=== PATIENT | male | born 1940 | race Caucasian/White ===

== ENCOUNTER 2018-07-08 17:32 | Inpatient (IN) | payer OTHER ==
--- OUTSIDE RECORDS SUMMARY | 2018-07-08 17:35 | XMS REPORT ---
:1940 [facility] Address [address] [place] [address] Care Team Providers Name Role Phone DOROTHY HOWARD Unavailable Unavailable Problems This patient has no known problems. Allergies, Adverse Reactions, Alerts This patient has no known allergies or adverse reactions. Medications This patient has no known medications. Results Test Description Test Time Test Comments Text Results Atomic Results Result Comments CT, FIDUCIAL 2017-07-28 Reason for Exam:->CT guided Addendum BeginsREPORT MARKER PLACEMENT 19:12:00 prostate fiducial placement; STATUS:A PATIENT ID: PERCUTANEOUS FOR 3-4 fiducials in prostate for [id number] Addendum: RADIATION THERAPY IMRT (non-Cyberknife) daily This exam was radiotherapyLocation->[facility] performed [facility] to our departmental dose-optimization program, which includes automated exposure control, adjustment of the mA and/or kV according to patient size and/or use of interactive reconstruction technique. Signed: Yamila Bruno MDReport Verified Date/Time: 07/28/2017 19:12:23 Reading Location: [facility] C013Y CT Body Reading RoomAddendum EndsFINAL REPORT CT-guided gold fiducial marker placement date 07/14/2017 Pre- and post procedure diagnosis: Prostate cancer Physician: Yamila Bruno Assistants: None Conscious Sedation: 1 Versed, 50 Fentanyl IVPatient vital signs were monitored continuously and remained stable. Sedation time: 25 minutes Discussion: The risks, benefits, and alternatives of the procedure were explained to the patient. Questions were answered. Informed, written consent was obtained. A CT of the pelvis was performed with the patient prone. The skin of the lower back was prepped, draped, and local anesthesia given. 3 18-gauge Cybermark gold fiducial markers were placed at the junction of the prostate base and seminal vesicles bilaterally and and left apex. The markers are at least 2 cm apart. Estimated blood loss: None Specimen: None Complications: No immediate Disposition: Home, in good condition, following 2 hours observation. The patient will return later for CT simulation. Grafts/implants: N/A Impression: CT guided placement of gold fiducial markers in the prostate gland. Signed: Yamila Bruno MDReport Verified Date/Time: 07/14/2017 18:04:10 Reading Location: [facility] C013Y CT Body Reading Room /APTT 2017-07-14 10:54:00 Test Item Value Reference Range Comments PROTIME (BEAKER) (test mnmk=029) 13.1 seconds 11.7-14.7 INR (BEAKER) (test nxjd=831) 1.0 <=5.9 PARTIAL THROMBOPLASTIN TIME (BEAKER) (test vghn=346) 27.8 seconds 22.5-36.0 RECOMMENDED COUMADIN/WARFARIN INR THERAPY RANGESSTANDARD DOSE: 2.0 - 3.0 Includes: PROPHYLAXIS forvenous thrombosis, systemic embolization; TREATMENT for venous thrombosis and/or pulmonary embolus.HIGH RISK: Target INR is 2.5-3.5 for patients with mechanical heart valves.PLATELET [id number] 10:39:00 Test Item Value Reference Range Comments PLATELET COUNT (BEAKER) (test zmkc=242) 159 K/CU MM 150-450
--- OUTSIDE RECORDS SUMMARY | 2018-07-08 17:35 | XMS REPORT | Clinical Summary ---
:1940 Author Organization [facility] Address [address] [place] [address] Care Team Providers Name Role Phone Geri Waylon Primary Care Provider Allergies No Known Allergies Medications Medication Sig Dispensed Refills Start End Date Status Date Missing or Non-Formulary Take 1 tablet 0 Active Medication by mouth daily TUMERIC . bernadette, Zingiber Take 1 0 Active officinalis, 250 mg Cap capsule by mouth daily BERNADETTE . magnesium 30 mg tablet Take 30 mg by 0 Active mouth daily. HAWTHORN ORAL Take 1 0 Active capsule by mouth daily. losartan 50 MG Tab 100 Take by mouth 0 Active mg, hydroCHLOROthiazide daily. 12.5 mg Cap 12.5 mg Missing or Non-Formulary ESSENTIAL 0 Active Medication ENZYMES- JUST BEFORE EATING BEEF . LOSARTAN POTASSIUM Take by 0 07/14/19 Discontinued (LOSARTAN ORAL) mouth. 18 losartan-hydrochlorothia Take 1 tablet 0 07/14/19 Discontinued zide (HYZAAR) 100-12.5 by mouth 18 mg per tablet daily. aller xt-tree Take 1 tablet 0 07/14/19 Discontinued pollen,hackberry 1 :20 by mouth 18 Soln daily. Active Problems Not on file Encounters Date Type Specialty Care Team Description 02/18/2018 Procedure visit Radiation Oncology Marvin Ramos MD 11/19/2017 Procedure visit Radiation Oncology Marvin Ramos MD 09/29/2017 Procedure visit Radiation Oncology Marvin Ramos MD 08/31/2017 Procedure visit Radiation Oncology Marvin Ramos MD 08/03/2017 Procedure visit Radiation Oncology Marvin Ramos MD 08/03/[address] 07/14/2017 Hospital Encounter Radiology Marvin Ramos MD Malignant neoplasm of prostate (HCC) 07/09/2017 Orders Only Radiation Oncology Marvin Ramos MD Malignant neoplasm of prostate (HCC) (Primary Dx) after 07/07/2017 Social History Tobacco Use Types Packs/Day Years Used Date Never Smoker Smokeless Tobacco: Never Used Alcohol Use Drinks/Week oz/Week Comments Yes 8 Glasses of wine 9.6 8 Cans of beer Sex Assigned at Date Recorded Not on file Job Start Date Occupation Industry Not on file Not on file Not on file Travel History Travel Start Travel End No recent travel history available. Last Filed Vital Signs Vital Sign Reading Time Taken Blood Pressure 165/70 07/14/2017 3:[address] REGISTRAR Pulse 72 07/14/2017 3:[address] REGISTRAR Temperature 37 C (98.6 F) 07/14/2017 12:[address] REGISTRAR Respiratory Rate 18 07/14/2017 3:[address] REGISTRAR Oxygen Saturation 94% 07/14/2017 2:[address] REGISTRAR Inhaled Oxygen Concentration - - Weight 75.3 kg (166 lb) 07/14/2017 10:[address] REGISTRAR Height 172.7 cm (5' 8") 07/14/2017 10:[address] REGISTRAR Body Mass Index 25.24 07/14/2017 10:[address] REGISTRAR Plan of Treatment Health Maintenance Due Date Last Done Comments INFLUENZA VACCINE 03/01/2018 Procedures Procedure Name Priority Date/Time Associated Diagnosis Comments CT GUIDED FIDUCIAL STAT 07/14/2017 1:38 PM Malignant neoplasm Results for this MARKER PLACEMENT [facility] REGISTRAR of prostate (HCC) procedure are in the results section. PLATELET COUNT STAT 07/14/2017 10:32 AM Results for this [facility] REGISTRAR procedure are in the results section. PT/APTT STAT 07/14/2017 10:32 AM Results for this [facility] REGISTRAR procedure are in the results section. after 07/07/[address] guided fiducial marker placement (07/14/2017 1:[address] REGISTRAR) Narrative Performed At Addendum Begins 3Touch [facility] REPORT STATUS:A Addendum: This exam was performed according to our departmental dose-optimization program, which includes automated exposure control, adjustment of the mA and/or kV according to patient size and/or use of interactive reconstruction technique. Signed: Yamila Bruno MD Report Verified Date/Time:07/28/2017 19:12:23 Reading Location: [facility] B1 C013Y CT Body Reading Room Addendum Ends FINAL REPORT CT-guided gold fiducial marker placement date 07/14/2017 Pre- and post procedure diagnosis: Prostate cancer Physician: Yamila Bruno Assistants: None Conscious Sedation: 1 Versed, 50 Fentanyl IV Patient vital signs were monitored continuously and remained [...] and seminal vesicles bilaterally and and left apex.The markers are at least 2 cm apart. Estimated blood loss: None Specimen: None Complications: No immediate Disposition: Home, in good condition, following 2 hours observation. The patient will return later for CT simulation. Grafts/implants: N/A Impression: CT guided placement of gold fiducial markers in the prostate gland. Signed: Yamila Bruno MD Report Verified Date/Time:07/14/2017 18:04:10 Reading Location: [facility] C0Y CT Body Reading Room Procedure Note Interface, External Ris In - 07/28/2017 7:[address] REGISTRAR Addendum Begins REPORT STATUS:A Addendum: This exam was performed according to our departmental dose-optimization program, which includes automated exposure control, adjustment of the mA and/or kV according to patient size and/or use of interactive reconstruction technique. Signed: Yamila Bruno MD Report Verified Date/Time: 07/28/2017 19:12:23 Reading Location: [facility] B1 C013Y CT Body Reading Room Addendum Ends FINAL REPORT CT-guided gold fiducial marker placement date 07/14/2017 Pre- and post procedure diagnosis: Prostate cancer Physician: Yamila Bruno Assistants: None Conscious Sedation: 1 Versed, 50 Fentanyl IV Patient vital signs were monitored continuously and remained [...] in the prostate gland. Signed: Yamila Bruno MD Report Verified Date/Time: 07/14/2017 18:04:10 Reading Location: [facility] B1 C013Y CT Body Reading Room Performing Organization Address [facility] Phone Number GE RIS PT/aPTT (07/14/2017 10:[address] REGISTRAR) Protime 13.1 11.7 - 14.7 seconds [facility] INR 1.0 <=5.9 [facility] PTT 27.8 22.5 - 36.0 seconds [facility] Specimen Blood Narrative Performed At [facility] RECOMMENDED COUMADIN/WARFARIN INR THERAPY RANGES STANDARD DOSE: 2.0 - 3.0 Includes: PROPHYLAXIS for venous thrombosis, systemic embolization; TREATMENT for venous thrombosis and/or pulmonary embolus. HIGH RISK: Target INR is 2.5-3.5 for patients with mechanical heart valves. Performing Organization Address [facility] Centercode Phone Number [address] [address] [phone] CENTER Platelet count (07/14/2017 10:[address] REGISTRAR) Platelets 159 150 - 450 K/CU MM [facility] Specimen Blood Performing Organization Address [facility]/Zipcode Phone Number [phone] [place] [address] [phone] CENTER after 07/07/2017 Insurance Payer Benefit Plan / Group Subscriber ID Type Phone Address [facility] xxxxxxxxx HMO/POS CARE CHOICE [employer]ETNA - MGD CARE AET[employer] INDEMNITY NON xxxxxxxxx Comm CONTR ([place]) [place] [address]
[2018-07-08 19:00] LABS: Absolute Lymphocytes (CBC) 0.6 K/uL (0.7-4.9); Basophils % 0.1 % (0-1.3); Eosinophils % 0.1 % (0-4.4); Hematocrit 38.8 % (39.6-49.0); Lymphocytes % 5.5 % (15.3-44.8); Monocytes % 8.2 % (3.3-12.3); RBC Red Blood Cell Count 4.21 M/uL (4.33-5.43)
--- NOTE | 2018-07-08 19:10 | RAD REPORT ---
EXAM DESCRIPTION: RAD - Chest Single View - 07/08/2018 6:57 pm CLINICAL HISTORY: weakness Chest pain. COMPARISON: <Comparisons> FINDINGS: Portable technique limits examination quality. The lungs are grossly clear. The heart is normal in size. No displaced fractures.Mildly tortuous thor acic aorta. IMPRESSION: No acute intrathoracic process suspected.
[2018-07-08 19:57] LABS: Protime INR 1.28
[2018-07-08 20:02] LABS: Albumin 3.1 g/dL (3.4-5.0); Bilirubin Direct 0.5 mg/dL (0-0.2); Bilirubin Total 1.4 mg/dL (0.2-1.0); Magnesium 2.3 mg/dL (1.8-2.4); Potassium 3.4 mmol/L (3.5-5.1); Protein, Total 7.1 g/dL (6.4-8.2); Troponin (Emerg Dept Use Only) 0.22 ng/mL (0.0-0.045)
--- NOTE | 2018-07-08 20:37 | EDPHYS ---
Physician Documentation [facility] Name: Mike Alvares Age: 77 yrs Sex: Male : 1940 Arrival Date: 07/08/2018 Time: 17:38 Bed 20 Private MD: ED Physician Zac Meza HPI: 07/08 20:23 This 77 yrs old Male presents to ER via EMS with complaints of General kb Weakness, Diarrhea. 20:31 The patient presents to the emergency department with rectal bleeding, dark stool. kb Onset: The symptoms/episode began/occurred this morning. Abdominal pain: described as uncomfortable. Modifying factors: The symptoms are alleviated by nothing, the symptoms are aggravated by nothing. Associated signs and symptoms: Pertinent positives: diarrhea, weakness. Severity of symptoms: At their worst the symptoms were moderate in the emergency department the symptoms are unchanged. The patient has not experienced similar symptoms in the past. The patient has not recently seen a physician. Pt reports increased weakness over the last week and diarrhea today. Reports the diarrhea is dark/black. Denies abd pain, states it is uncomfortable. . Historical: - Allergies: 17:41 No Known Allergies; bp - Home Meds: 17:41 losartan oral oral [Active]; tamsulosin 0.4 mg oral cp24 1 cap once daily [Active]; bp amlodipine oral [Active]; - PMHx: 17:41 Hypertension; Cancer; PROSTATE; bp - Immunization history:: Adult Immunizations. - Social history:: Smoking status: Patient/guardian denies using tobacco. - Ebola Screening: : Patient negative for fever greater than or equal to 101.5 degrees Fahrenheit, and additional compatible Ebola Virus Disease symptoms Patient denies exposure to infectious person Patient denies travel to an Ebola-affected area in the 21 days before illness onset No symptoms or risks identified at this time. ROS: 20:19 Constitutional: Negative for fever, chills, and weight loss, ENT: Negative for injury, kb pain, and discharge, Neck: Negative for injury, pain, and swelling, Cardiovascular: Negative for chest pain, palpitations, and edema, Respiratory: Negative for shortness of breath, cough, wheezing, and pleuritic chest pain, Back: Negative for injury and pain, : Negative for injury, bleeding, discharge, and swelling, MS/Extremity: Negative for injury and deformity, Skin: Negative for injury, rash, and discoloration. 20:19 Abdomen/GI: Positive for abdominal pain, diarrhea, black/tarry stool. 20:19 Neuro: Positive for weakness. Exam: 20:19 Constitutional: This is a well developed, well nourished patient who is awake, alert, kb and in no acute distress. ENT: Nares patent. No nasal discharge, no septal abnormalities noted. Tympanic membranes are normal and external auditory canals are clear. Oropharynx with no redness, swelling, or masses, exudates, or evidence of obstruction, uvula midline. Mucous membranes moist. Neck: Trachea midline, no thyromegaly or masses palpated, and no cervical lymphadenopathy. Supple, full range of motion without nuchal rigidity, or vertebral point tenderness. No Meningismus. Chest/axilla: Normal chest wall appearance and motion. Nontender with no deformity. No lesions are appreciated. Cardiovascular: Regular rate and rhythm with a normal S1 and S2. No gallops, murmurs, or rubs. Normal PMI, no JVD. No pulse deficits. Respiratory: Lungs have equal breath sounds bilaterally, clear to auscultation and percussion. No rales, rhonchi or wheezes noted. No increased work of breathing, no retractions or nasal flaring. Abdomen/GI: Soft, non-tender, with normal bowel sounds. No distension or tympany. No guarding or rebound. No evidence of tenderness throughout. Back: No spinal tenderness. No costovertebral tenderness. Full range of motion. MS/ Extremity: Pulses equal, no cyanosis. Neurovascular intact. Full, normal range of motion. Neuro: Awake and alert, GCS 15, oriented to person, place, time, and situation. Cranial nerves II-XII grossly intact. Motor strength 5/5 in all extremities. Sensory grossly intact. Cerebellar exam normal. Normal gait. 20:19 Head/face: Noted is no obvious of injury or deformity except ecchymosis, that is moderate, of the bruising on cheeks and forehead s/p fall 11 days ago. Vital Signs: 17:41 BP 152 / 79; Pulse 84; Resp 16; Temp 98.6; Pulse Ox 96% ; Weight 77.11 kg; Height 5 ft. bp 7 in. (170.18 cm); 19:55 BP 140 / 77 Supine (auto/reg); Pulse 84; Pulse Ox 97% on NC; ds4 19:58 BP 124 / 69 Sitting (auto/reg); Pulse 87 MON; Pulse Ox 97% on NC; ds4 20:01 BP 120 / 72 Standing (auto/reg); Pulse 90 MON; Pulse Ox 97% on NC; ds4 21:44 BP 135 / 110; Pulse 80; Resp 17 S; Pulse Ox 94% on 2 lpm NC; cc3 22:30 BP 124 / 79; Pulse 83; Resp 18 S; Pulse Ox 95% on 2 lpm NC; cc3 17:41 Body Mass Index 26.63 (77.11 kg, 170.18 cm) bp MDM: 18:25 Patient medically screened. kb 20:17 Data reviewed: vital signs, nurses notes. Data interpreted: Pulse oximetry: on room air kb is 97 %. Interpretation: normal. 20:23 Counseling: I had a detailed discussion with the patient and/or guardian regarding: the kb historical points, exam findings, and any diagnostic results supporting the discharge/admit diagnosis, lab results, radiology results, the need for further work-up and treatment in the hospital. 20:29 Physician consultation: Waylon Nevarez MD was contacted at 20:15, regarding admission, kb to the telemetry unit. patient's condition, and will see patient in inpatient room. Physician consultation: Alan Short MD was contacted at 20:18, regarding consult, patient's condition, and will see patient in inpatient room, tomorrow. 07/08 18:25 Order name: Basic Metabolic Panel; Complete Time: 20:03 kb 07/08 18:25 Order name: CBC with Diff kb 07/08 18:25 Order name: LFT's; Complete Time: 20:04 kb 07/08 18:25 Order name: Magnesium; Complete Time: 20:04 kb 07/08 18:25 Order name: NT PRO-BNP; Complete Time: 20:04 kb 07/08 18:25 Order name: PT-INR; Complete Time: 20:03 kb 07/08 18:25 Order name: Troponin (emerg Dept Use Only); Complete Time: 20:04 kb 07/08 18:25 Order name: XRAY Chest (1 view); Complete Time: 19:16 kb 07/08 18:25 Order name: EKG; Complete Time: 18:26 kb 07/08 18:35 Order name: Type And Screen; Complete Time: 20:17 bp 07/08 22:09 Order name: ABO/RH no charge; Complete Time: 22:11 EDMS 07/08 18:25 Order name: Cardiac monitoring; Complete Time: 18:31 kb 07/08 18:25 Order name: EKG - Nurse/Tech; Complete Time: 19:12 kb 07/08 18:25 Order name: IV Saline Lock; Complete Time: 18:31 kb 07/08 18:25 Order name: Labs collected and sent; Complete Time: 19:12 kb 07/08 18:25 Order name: O2 Per Protocol; Complete Time: 18:31 kb 07/08 18:25 Order name: O2 Sat Monitoring; Complete Time: 18:32 kb 07/08 18:35 Order name: Orthostatics; Complete Time: 20:11 kb Administered Medications: 21:30 Drug: Flagyl 500 mg Volume: 100 ml; Route: IVPB; Rate: 200 ml/hr; Infused Over: 30 cc3 mins; Site: left wrist; 22:05 Follow up: Response: No adverse reaction; IV Status: Completed infusion; IV Intake: cc3 100ml 22:10 Drug: Cipro 400 mg Volume: 200 ml; Route: IVPB; Infused Over: 60 mins; Site: left wrist;cc3 22:15 Follow up: Response: No adverse reaction; IV Status: Infusion continued upon admission cc3 Point of Care Testing: Guaiac: 19:13 Stool Guaiac: Positive; Stool Hemoccult Control: Pass; bp Disposition: 07/09 12:43 Co-signature as Attending Physician, Zac Meza MD I agree with the assessment and tn plan of care. Disposition: 07/08/18 20:36 Hospitalization ordered by Waylon Nevarez for Inpatient Admission. Preliminary diagnosis are Gastrointestinal hemorrhage, unspecified, Elevated troponin, Abnormal results of liver function studies. - Bed requested for Telemetry/MedSurg (Inpatient). - Status is Inpatient Admission. cc3 - Condition is Fair. - Problem is new. - Symptoms are unchanged. UTI on Admission? No Signatures: Dispatcher [employer] [facility] Ирина Ortiz FNP-C FNP-Ckb Lewis, Kimberly, RN RN kl Appiah, William, MD MD wa Peltier, Brian, RN RN Mary Vernon cc3 Corrections: (The following items were deleted from the chart) 07/08 22:11 20:36 Hospitalization Ordered by Waylon Nevarez MD for Inpatient Admission. Preliminary kl diagnosis is Gastrointestinal hemorrhage, unspecified; Elevated troponin; Abnormal results of liver function studies. Bed requested for Telemetry/MedSurg (Inpatient). Status is Inpatient Admission. Condition is Fair. Problem is new. Symptoms are unchanged. UTI on Admission? No. kb 22:49 22:11 07/08/2018 20:36 Hospitalization Ordered by Waylon Nevarez MD for Inpatient cc3 Admission. Preliminary diagnosis is Gastrointestinal hemorrhage, unspecified; Elevated troponin; Abnormal results of liver function studies. Bed requested for Telemetry/MedSurg (Inpatient). Status is Inpatient Admission. Condition is Fair. Problem is new. Symptoms are unchanged. UTI on Admission? No. kl
--- NOTE | 2018-07-08 20:37 | ER ---
Nurse's Notes [facility] Name: Mike Alvares Age: 77 yrs Sex: Male : 1940 Arrival Date: 07/08/2018 Time: 17:38 Bed 20 Private MD: Diagnosis: Gastrointestinal hemorrhage, unspecified;Elevated troponin;Abnormal results of liver function studies Presentation: 07/08 17:38 Presenting complaint: EMS states: DIARRHEA AND GEN WEAKNESS SINCE LAST PM. Transition bp of care: patient was not received from another setting of care. Onset of symptoms was July 07, 2018. Risk Assessment: Do you want to hurt yourself or someone else? Patient reports no desire to harm self or others. Initial Sepsis Screen: Does the patient meet any 2 criteria? No. Patient's initial sepsis screen is negative. Does the patient have a suspected source of infection? No. Patient's initial sepsis screen is negative. Care prior to arrival: Medication(s) given: zofran 4 mg, IV initiated. 18 GA, in the left forearm, Glucose check: 196 Oxygen administered. via nasal cannula. 17:38 Method Of Arrival: EMS: [facility] bp 17:38 Acuity: ANDERSON 3 bp Triage Assessment: 17:41 General: Appears in no apparent distress. comfortable, Behavior is calm, cooperative, bp appropriate for age. Pain: Denies pain. GI: Reports diarrhea. Historical: - Allergies: 17:41 No Known Allergies; bp - Home Meds: 17:41 losartan oral oral [Active]; tamsulosin 0.4 mg oral cp24 1 cap once daily [Active]; bp amlodipine oral [Active]; - PMHx: 17:41 Hypertension; Cancer; PROSTATE; bp - Immunization history:: Adult Immunizations. - Social history:: Smoking status: Patient/guardian denies using tobacco. - Ebola Screening: : Patient negative for fever greater than or equal to 101.5 degrees Fahrenheit, and additional compatible Ebola Virus Disease symptoms Patient denies exposure to infectious person Patient denies travel to an Ebola-affected area in the 21 days before illness onset No symptoms or risks identified at this time. Screenin:41 Abuse screen: Denies threats or abuse. Denies injuries from another. Nutritional bp screening: No deficits noted. Tuberculosis screening: No symptoms or risk factors identified. Fall Risk None identified. Assessment: 17:41 General: SEE TRIAGE NOTE. bp 19:15 Reassessment: Patient appears in no apparent distress at this time. Patient and/or cc3 family updated on plan of care and expected duration. Pain level reassessed. Patient is alert, oriented x 3, equal unlabored respirations, skin warm/dry/pink. Received this male patient from morning shift FEI Barrera as a case of diarrhea and general weakness; with IV cannula gauge 18 at the left wrist saline locked. 20:12 Reassessment: Patient appears in no apparent distress at this time. Patient and/or cc3 family updated on plan of care and expected duration. Pain level reassessed. Patient is alert, oriented x 3, equal unlabored respirations, skin warm/dry/pink. 21:18 Reassessment: Patient appears in no apparent distress at this time. Patient and/or cc3 family updated on plan of care and expected duration. Pain level reassessed. Patient is alert, oriented x 3, equal unlabored respirations, skin warm/dry/pink. 22:40 Reassessment: Patient appears in no apparent distress at this time. Patient and/or cc3 family updated on plan of care and expected duration. Pain level reassessed. Patient is alert, oriented x 3, equal unlabored respirations, skin warm/dry/pink. Room available at 415, report called and handed over to FEI Camarena for continuity of care and management. 22:49 Reassessment: Patient left ER for admission vitally stable by stretcher with oxygen cc3 therapy escorted by diet technician registered Lakshmi and the patient's . Vital Signs: 17:41 BP 152 / 79; Pulse 84; Resp 16; Temp 98.6; Pulse Ox 96% ; Weight 77.11 kg; Height 5 ft. bp 7 in. (170.18 cm); 19:55 BP 140 / 77 Supine (auto/reg); Pulse 84; Pulse Ox 97% on NC; ds4 19:58 BP 124 / 69 Sitting (auto/reg); Pulse 87 MON; Pulse Ox 97% on NC; ds4 20:01 BP 120 / 72 Standing (auto/reg); Pulse 90 MON; Pulse Ox 97% on NC; ds4 21:44 BP 135 / 110; Pulse 80; Resp 17 S; Pulse Ox 94% on 2 lpm NC; cc3 22:30 BP 124 / 79; Pulse 83; Resp 18 S; Pulse Ox 95% on 2 lpm NC; cc3 17:41 Body Mass Index 26.63 (77.11 kg, 170.18 cm) bp ED Course: 17:38 Patient arrived in ED. bp 17:39 Triage completed. bp 17:41 Arm band placed on. bp 17:41 Patient has correct armband on for positive identification. Bed in low position. Call bp light in reach. Side rails up X2. Adult w/ patient. 17:41 Maintain EMS IV. Dressing intact. Good blood return noted. Site clean \T\ dry. Gauge \T\ bp site: 18 GAUGE LEFT FA. 17:49 Bruce Magana, FEI is Primary Nurse. bp 18:24 Ирина Ortiz FNP-C is PHCP. kb 18:24 Zac Meza MD is Attending Physician. kb 18:43 EKG done, by ED staff, reviewed by Zac Meza MD. [facility] 18:56 XRAY Chest (1 view) In Process Unspecified. EDMS 19:13 CLEANED UP STOOL ON UNDER GARMENTS AND SHEETS . Warm blanket given. Pillow given. [facility] 20:33 Waylon Nevarez MD is Hospitalizing Provider. kb 22:35 No provider procedures requiring assistance completed. Patient admitted, IV remains in cc3 place. Administered Medications: 21:30 Drug: Flagyl 500 mg Volume: 100 ml; Route: IVPB; Rate: 200 ml/hr; Infused Over: 30 cc3 mins; Site: left wrist; 22:05 Follow up: Response: No adverse reaction; IV Status: Completed infusion; IV Intake: cc3 100ml 22:10 Drug: Cipro 400 mg Volume: 200 ml; Route: IVPB; Infused Over: 60 mins; Site: left wrist;cc3 22:15 Follow up: Response: No adverse reaction; IV Status: Infusion continued upon admission cc3 Point of Care Testing: Guaiac: 19:13 Stool Guaiac: Positive; Stool Hemoccult Control: Pass; bp Intake: 22:05 IV: 100ml; Total: 100ml. cc3 Outcome: 20:36 Decision to Hospitalize by Provider. kb 22:35 Admitted to Tele accompanied by tech, family with patient, via stretcher, room 415, cc3 with oxygen, with chart, Report called to FEI Camarena 22:35 Condition: stable 22:35 Instructed on the need for admit, Demonstrated understanding of instructions. 22:49 Patient left the ED. cc3 Signatures: Dispatcher [employer] EDИрина Ho, RAFFY GENERATOR REBUILDER-Fransisco Joe 4 Jenn Duarte [facility] Bruce Magana, FEI RN Mary Martinez cc3 Corrections: (The following items were deleted from the chart) 21:45 21:44 BP 135 / 110; Pulse 80bpm; Resp 25bpm; Spontaneous; Pulse Ox 94% 2 lpm Nasal cc3 Cannula; cc3 22:50 19:15 Reassessment: Patient appears in no apparent distress at this time. Patient cc3 and/or family updated on plan of care and expected duration. Pain level reassessed. Patient is alert, oriented x 3, equal unlabored respirations, skin warm/dry/pink. cc3
[2018-07-08] MEDS ORDERED: CIPROFLOXACIN 400mg IV 400 MG/200 ML BAG IV ONE (21:36)
[2018-07-08] MEDS ORDERED: METRONIDAZOLE 500mg IVPB 500 MG/100 ML BAG IV ONE (21:36)
[2018-07-08] MEDS: NA CHLORIDE 0.9% 1,000 ML IV SCH (23:25)
[2018-07-09 00:08] LABS: Blood Morphology Comment NOT SEEN (NOT SEEN); Platelet Estimate ADEQ; Urine White Blood Cell Casts OK
[2018-07-09] MEDS: NA CHLORIDE 0.9% 1,000 ML IV SCH ×2 (04:22→20:02)
[2018-07-09] MEDS: METRONIDAZOLE 500mg IVPB 500 MG/100 ML BAG IV SCH ×3 (04:22→20:02)
[2018-07-09 05:39] LABS: Absolute Lymphocytes (CBC) 0.8 K/uL (0.7-4.9); Absolute Monocytes 1.3 K/uL (0.1-1.3); Absolute Neutrophil 8.4 K/uL (1.8-8.0); Basophils % 0.5 % (0-1.3); Eosinophils % 0.4 % (0-4.4); Hematocrit 38.3 % (39.6-49.0); Lymphocytes % 7.6 % (15.3-44.8); Monocytes % 12.1 % (3.3-12.3); RBC Red Blood Cell Count 4.19 M/uL (4.33-5.43)
[2018-07-09 05:59] LABS: Bilirubin Direct 0.4 mg/dL (0-0.2); Bilirubin Total 1.2 mg/dL (0.2-1.0); Potassium 3.3 mmol/L (3.5-5.1); Protein, Total 6.6 g/dL (6.4-8.2)
--- NOTE | 2018-07-09 06:22 | EKG ---
Test Date: 2018-07-08 Test Time: 18:48:37 Creel Hand: KELSY MEASUREMENT RESULTS: Intervals: Rate: 85 WI: 188 QRSD: 94 QT: 384 QTc: 456 [place]: P: 19 WI: 188 QRS: -4 T: 81 INTERPRETIVE STATEMENTS: Sinus rhythm with premature atrial complexes Voltage criteria for left ventricular hypertrophy Inferior infarct, age undetermined Anteroseptal infarct, age undetermined Abnormal ECG No previous ECG available for comparison Electronically Signed On 07-09-18 06:16:47 ANESTHESIOLOGY FACULTY by Ayden Little
[2018-07-09 07:56] LABS: Urine Appearance CLEAR; Urine Bilirubin NEGATIVE (NEG); Urine Blood NEGATIVE (NEG); Urine Color YELLOW; Urine Glucose NEGATIVE (NEG); Urine Protein 1+ (NEG); Urine Specific Gravity 1.015 (1.005-1.030); Urine Urobilinogen 0.2 mg/dL (0.2-1.0)
[2018-07-09] MEDS: CIPROFLOXACIN 400mg IV 400 MG/200 ML BAG IV SCH ×2 (08:22→20:02)
[2018-07-09] MEDS: PANTOPRAZOLE 40 MG INJ IVP SCH ×2 (08:23→20:02)
[2018-07-09 08:52] LABS: Urine Bacteria 20-50 /HPF (NONE SEEN); Urine Culture Reflex Order REFLEXED; Urine RBC <5 /HPF (NONE SEEN)
[2018-07-09] MEDS: ONDANSETRON 4 MG/2 ML VIAL IV PRN ×2 (12:17→17:50)
--- NOTE | 2018-07-09 16:17 | EKG ---
Test Date: 2018-07-09 Test Time: 10:59:25 Clerk Specialist: YEVGENIY MEASUREMENT RESULTS: Intervals: Rate: 79 IN: 182 QRSD: 90 QT: 402 QTc: 460 [place]: P: 48 IN: 182 QRS: 27 T: -21 INTERPRETIVE STATEMENTS: Sinus rhythm with occasional premature ventricular complexes and premature atrial complexes Anteroseptal infarct, age undetermined Abnormal ECG Compared to ECG 07/08/2018 18:48:37 Ventricular premature complex(es) now present Left ventricular hypertrophy no longer present Myocardial infarct finding still present Electronically Signed On 07-09-18 16:16:49 HEAD PAPER TESTER by Ayden Little
[2018-07-09] MEDS ORDERED: POTASSIUM CL SA 10 MEQ TAB PO ONE (17:28)
[2018-07-09] MEDS: ENOXAPARIN 30 MG/0.3 ML SQ SCH (17:49)
[2018-07-10] MEDS ORDERED: POTASSIUM CL SA 10 MEQ TAB PO ONE ×2 (00:39→09:00)
[2018-07-10] MEDS: METRONIDAZOLE 500mg IVPB 500 MG/100 ML BAG IV SCH ×3 (04:24→20:50)
--- NOTE | 2018-07-10 04:51 | HP ---
Date of Admission: 07/08/2018 Entrance Complaint: Diarrhea, bright red rectal bleeding. History Of Present Illness: The patient presented to the emergency room with the above outlined symp toms. He stated he did not think there was much blood. However, the diarrhea he felt was leaving hi m quite weak. Other pertinent history is approximately 5 days earlier, he had fallen and sustained s ignificant bruising of his face. There was no apparent loss of conscious, and he has a complete kia llection of the fall, and this has been verified by his . Past History: Prostate cancer, aggressively treated a number of years ago; hypertension, controlled on medication. Family History: Noncontributory. Social History: Nonsmoker, nondrinker. Physical Examination: General: The patient is an elderly male with stable vital signs. Head and Neck: Normocephalic. Pupils equal and react to light and accommodation. Fundi negative. Trachea midline. Thyroid not palpable. ENT: Negative. Chest: Clear to P and A. Cardiovascular: PMI in midclavicular line. Heart sounds normal. Peripheral pulses present and equa l bilaterally. Abdomen: Minimal tenderness to midepigastric and periumbilical area. No guarding, rebound, tenderne ss, or rigidity. Bowel sounds are normal. Extremities: Moderately dehydrated. Good tone and movement bilaterally. Reflexes are physiologic. Rectal: Deferred. Impression: 1.Rectal bleeding, possibly secondary to acute enteritis. 2.Dehydration. 3.Hypertension, controlled. Plan: The patient will be admitted, placed on IV fluids and IV antibiotics. With the possibility of being a diverticular situation, GI will be consulted. It is also of note that the troponin was elev ated mildly, as well as the liver enzymes were also mildly elevated. However, it is important to not e that the patient apparently had been taking a large number of anti-inflammatories over the past few days since the fall, which is more than he is accustomed to. The possibility of this causing a prob erick was also considered. Rhabdomyolysis was considered less likely. Cardiology etiology will also b e looked into. HR/MODL Voice ID: [id number]
--- NOTE | 2018-07-10 05:00 | HP ---
Date of Admission: 07/08/2018 The patient feels somewhat better tonight. He is asking for advancement of his diet since he is not going to be scoped for 2 reasons; 1.He has stopped bleeding. 2.His hemoglobin is stable. 3.The Cardiology consult needs to be cleared prior to any procedure. Therefore, his diet will be advanced. Potassium will be replaced. He will be restarted on his blood pressure medication, and preventative Lovenox will also be instituted. The liver enzymes and renal are improved somewhat, but still elevated. The troponin has come down with changes on the EKG. The last prior EKG could be obtained was almost 10 years ago and did show some ischemic changes suggestiv e of an inferior infarct, at which time a stress test was done, and this was reported as negative. C ardiology consult will be obtained, echocardiogram; and depending on the results of this, the patient may either remain in the hospital till he is stabilized cardiac milian for the colonoscopy or could be discharged for an outpatient scope. HR/MODL Voice ID: [id number]
[2018-07-10 06:53] LABS: Absolute Lymphocytes (CBC) 0.8 K/uL (0.7-4.9); Absolute Monocytes 1.1 K/uL (0.1-1.3); Absolute Neutrophil 8.8 K/uL (1.8-8.0); Basophils % 0.2 % (0-1.3); Eosinophils % 0.6 % (0-4.4); Hematocrit 37.1 % (39.6-49.0); Lymphocytes % 7.2 % (15.3-44.8); MPV 9.3 fL (7.6-11.3); Monocytes % 9.9 % (3.3-12.3); RBC Red Blood Cell Count 4.04 M/uL (4.33-5.43)
[2018-07-10 06:56] LABS: Potassium 3.8 mmol/L (3.5-5.1)
[2018-07-10] MEDS ORDERED: hydroCHLOROthiazide 12.5 MG CAP PO SCH (09:00)
[2018-07-10] MEDS ORDERED: HOME MED 1 EA UNK (Losartan/Hydrochlorothiazide [Losartan-Hctz 100-12.5 Mg Tab] 1 TAB) PO SCH (09:00)
[2018-07-10] MEDS: LOSARTAN POTASSIUM 50 MG TABLET PO SCH (10:54)
[2018-07-10] MEDS: PANTOPRAZOLE 40 MG INJ IVP SCH ×2 (10:54→20:51)
[2018-07-10] MEDS: CIPROFLOXACIN 400mg IV 400 MG/200 ML BAG IV SCH ×2 (10:55→20:50)
[2018-07-10] MEDS: AMLODIPINE 5 MG TAB PO SCH (10:55)
[2018-07-10] MEDS: SODIUM CHLORIDE 0.9% 10ML INJ IV PRN (10:55)
[2018-07-10] MEDS: ENOXAPARIN 30 MG/0.3 ML SQ SCH (10:55)
[2018-07-10] MEDS: ONDANSETRON 4 MG/2 ML VIAL IV PRN (12:38)
--- NOTE | 2018-07-10 12:56 | CON ---
Chief Complaint: Weakness. History Of Present Illness: Mr. Alvares a week ago was walking, spun around to look at something behi nd and fell and bruised his face. He did not seek any medical attention. Yesterday, he was having d iarrhea, it had been a new onset diarrhea. No blood was noticed, but he had trouble with walking, wh en he took himself to the bathroom to have diarrhea, and he was feeling so exhausted, he could barely crawl his way back to bed. When he had diarrhea in bed and could not get out of bed is when EMS was called. Since being in the hospital, his EKG shows old infarctions, inferior and anterior, and his troponins are elevated, not an acute coronary syndrome. He has not had any arrhythmia to account for syncope. The patient denies any previous history of heart disease. No history of tobacco use or di abetes or dyslipidemia. He takes amlodipine, losartan, hydrochlorothiazide, and Flomax as his only o utpatient medications. He has no allergies. Physical Examination: General: 5 feet 7 inches, 154 pounds. HEENT: Normal, except for bruising that has migrated down into the maxillary areas. There is no car otid bruit. Heart: Within normal limits. Abdomen: Soft. Extremities: Trace edema. Diagnostic Data: EKG shows old infarctions. Troponins, the highest one is 0.16. His creatinine is 1.45. Hemoglobin is 12.6. Normochromic. Impression: The patient's falling is possibly from bleeding, although he does not have a low hemoglo bin and his blood pressure is fine. The diarrhea seems to have caused a significant disruption in hi s overall pattern. I think he definitely has coronary artery disease that previously was undiagnosed , but it is present on enzymes and the EKG. At some point, he should have a stress test. With the a mount of bleeding, he probably does not really need to proceed quickly to have a colonoscopy unless m ore bleeding ensues, but I would recommend that we do a pharmacologic nuclear stress test and echo. If any of them shows an abnormality, we can proceed with cardiac cath. The patient is completely morena e of chest pain, denies any previous history of heart disease. DILLON/HEATHER Voice ID: [id number] Report ID: [id number]
[2018-07-10] MEDS: NA CHLORIDE 0.9% 1,000 ML IV SCH ×2 (15:12→20:50)
--- NOTE | 2018-07-10 20:09 | PN ---
Date of Progress Note: 07/10/2018 The patient states he feels better. He still weak, though, and according to his , she says over the past few months prior to the fall and prior to his hospitalization, he has been getting somewhat weaker as far as his lower extremities, has difficulty getting himself out of the chair. This may ad d another system to the equation as far as his etiology and the diarrhea, setting him back apparently as much as it has, however, we will await further cardiac workup before the disposition is made. If in fact, it is positive, obviously we determine his next moves. If it is negative, perhaps he could go home and follow up with a colonoscopy as an outpatient and a neurological consultation could be o btained. HR/HEATHER Voice ID: [id number] Report ID: [id number]
[2018-07-11] MEDS: METRONIDAZOLE 500mg IVPB 500 MG/100 ML BAG IV SCH ×3 (05:38→20:50)
[2018-07-11] MEDS: ONDANSETRON 4 MG/2 ML VIAL IV PRN (06:05)
[2018-07-11 06:16] LABS: Absolute Lymphocytes (CBC) 0.8 K/uL (0.7-4.9); Absolute Monocytes 1.1 K/uL (0.1-1.3); Basophils % 0.4 % (0-1.3); Eosinophils % 1.7 % (0-4.4); Hematocrit 37.9 % (39.6-49.0); Lymphocytes % 7.8 % (15.3-44.8); MPV 9.5 fL (7.6-11.3); Monocytes % 10.5 % (3.3-12.3); RBC Red Blood Cell Count 4.08 M/uL (4.33-5.43)
[2018-07-11] MEDS: CIPROFLOXACIN 400mg IV 400 MG/200 ML BAG IV SCH ×2 (09:19→20:49)
[2018-07-11] MEDS: AMLODIPINE 5 MG TAB PO SCH (09:20)
[2018-07-11] MEDS: ENOXAPARIN 30 MG/0.3 ML SQ SCH (09:20)
[2018-07-11] MEDS: LOSARTAN POTASSIUM 50 MG TABLET PO SCH (09:21)
[2018-07-11] MEDS: PANTOPRAZOLE 40 MG INJ IVP SCH ×2 (09:21→20:50)
[2018-07-11] MEDS: SODIUM CHLORIDE 0.9% 10ML INJ IV PRN ×2 (09:21→20:49)
[2018-07-11 12:42] LABS: Albumin 2.8 g/dL (3.4-5.0); Bilirubin Direct 0.5 mg/dL (0-0.2); Bilirubin Total 1.3 mg/dL (0.2-1.0); Potassium 3.5 mmol/L (3.5-5.1); Protein, Total 6.2 g/dL (6.4-8.2)
--- NOTE | 2018-07-11 16:04 | PN ---
He is not having chest pain or any signs of unstable angina. I strongly suspect he has underlying CA D, tomorrow we have to do an echo and pharmacologic stress test. He is stronger today. He is able t o get up and walk. He is not having any active bleeding. He is not having any further diarrhea. DILLON/HEATHER Voice ID: [id number] Report ID: [id number]
[2018-07-11] MEDS: NA CHLORIDE 0.9% 1,000 ML IV SCH ×2 (17:52→20:50)
--- NOTE | 2018-07-11 19:19 | PN ---
Date of Progress Note: 07/11/2018 The patient is still quite weak when he walks and some equilibrium problems. The ecchymosis on his f isis has decreased. His liver enzymes have improved. CPK is negative. Awaiting his cardiac workup b efore disposition will be made. HR/MODL Voice ID: [id number] Report ID: [id number]
[2018-07-12] MEDS: METRONIDAZOLE 500mg IVPB 500 MG/100 ML BAG IV SCH ×3 (05:08→22:17)
--- NOTE | 2018-07-12 08:48 | EKG ---
Test Date: 2018-07-11 Test Time: 19:11:18 Psychiatric Technician Assistant: AJAY MEASUREMENT RESULTS: Intervals: Rate: 94 DE: 172 QRSD: 80 QT: 352 QTc: 440 [place]: P: 23 DE: 172 QRS: 18 T: 94 INTERPRETIVE STATEMENTS: Sinus rhythm with premature atrial complexes Septal infarct, age undetermined Abnormal ECG Compared to ECG 07/09/2018 10:59:25 Ventricular premature complex(es) no longer present Myocardial infarct finding still present Electronically Signed On 07-12-18 08:47:47 PLANETARIUM TECHNICIAN by Ayden Little
[2018-07-12] MEDS ORDERED: REGADENOSON 0.4 MG/5 ML SYR IV ONE (09:04)
[2018-07-12] MEDS: AMLODIPINE 5 MG TAB PO SCH (10:46)
[2018-07-12] MEDS: LOSARTAN POTASSIUM 50 MG TABLET PO SCH (10:47)
[2018-07-12] MEDS: PANTOPRAZOLE 40 MG INJ IVP SCH ×2 (10:47→22:17)
[2018-07-12] MEDS: ENOXAPARIN 30 MG/0.3 ML SQ SCH (10:47)
[2018-07-12] MEDS: CIPROFLOXACIN 400mg IV 400 MG/200 ML BAG IV SCH ×2 (12:01→21:00)
--- NOTE | 2018-07-12 13:35 | ECHO ---
HEIGHT: 5 ft 7 in WEIGHT: 154 lb 4 oz DATE OF STUDY: 07/12/[address]: Ayden Little MD 2-DIMENSIONAL: YES M.MODE: YES DOPPLER: YES COLOR FLOW: YES TDS: PORTABLE: DEFINITY: BUBBLE STUDY: DIAGNOSIS: HIGH TROPONIN CARDIAC HISTORY: CATHERIZATION: NO SURGERY: NO PROSTHETIC VALVE: NO PACEMAKER: NO MEASUREMENTS (cm) DIASTOLIC (NORMALS) SYSTOLIC (NORMALS) IVSd 1.7 (0.6-1.2) LA Diam 3.9 (1.9-4.0) LVEF 53% LVIDd 5.2 (3.5-5.7) LVIDs 3.7 (2.0-3.5) %FS 28% LVPWd 1.8 (0.6-1.2) Ao Diam 3.3 (2.0-3.7) 2 DIMENSIONAL ASSESSMENT: RIGHT ATRIUM: NORMAL LEFT ATRIUM: NORMAL RIGHT VENTRICLE: NORMAL LEFT VENTRICLE: NORMAL TRICUSPID VALVE: NORMAL MITRAL VALVE: MITRAL ANNULAR CALCIFICATION PULMONIC VALVE: NORMAL AORTIC VALVE: NORMAL PERICARDIAL EFFUSION: NONE AORTIC ROOT: NORMAL LEFT VENTRICULAR WALL MOTION: NORMAL DOPPLER/COLOR FLOW: MILD AORTIC REGURGITATION. MILD TRICUPSID REGURGITATION. MILD PULMONARY HYPERTENSION. ESTIMATED RIGHT VENTRICULAR SYSTOLIC PRESSURE 38 mmHg. COMMENTS: NORMAL LEFT VENTRICULAR EJECTION FRACTION. ATRIAL FIBRILLATION, HEART RATE 80-85 BEARTS PER MINUTE. MILD AORTIC REGURGITATION. MILD TRICUSPID REGURGITATION. MITRAL ANNULAR CALCIFICATION. MILD PULMONARY HYPERTENSION. TECHNOLOGIST: KARTIK VIRAMONTES
--- NOTE | 2018-07-12 13:44 | TREADPHA ---
DX: CHEST PAIN Date of Study: 07/12/2018 Ht: 5 7 Wt: 154 lb 4 oz Consulting Physician: NATANAEL MEDICATIONS: TYLENOL, NORVASC, CIPRO, LOVENOX, COZAAR, FLAGYL, ZOFRAN, PROTONIX HISTORY: 77 YEAR OLD MALE HERE FOR CHEST PAIN. HISTORY OF HYPERTENSION AND PROSTATE CANCER. PHYSICIAL EXAMINATION: RESTING B.P.: 142/75 RESTING H.R.: 96 RESTING EKG: ATRIAL FIBRILLATION WITH PREMATURE VENTRICULAR COMPLEXES. INTRA-VENTRICULAR CONDUCTION DELAY AND MYOCARDIAL INFARCTION, DIFFUSE ST AND T WAVE ABNORMALITY. PROTOCOL: LEXISCAN EXERCISE TIME: 3:30 B.P. AT PEAK STRESS: 113/90 IMPRESSION: LEXISCAN STRESS TEST COMPLETED. CARDIOLITE INJECTED PER PROTOCOL PREMATURE ATRIAL COMPLEXES AND PREMATURE VENTRICULAR COMPLEXES NOTED THROUGHOUT TEST. DENIES ANY CHEST PAIN. SEE NUCLEAR MEDICINE REPORT. NON-DIAGNOSTIC ELECTROCARDIOGRAM WITH LEXISCAN STRESS.
--- NOTE | 2018-07-12 14:31 | RAD REPORT ---
EXAM DESCRIPTION: NM - Rest Stress Cardiac Imaging - 07/12/2018 2:07 pm CLINICAL HISTORY: Chest pain COMPARISON: None. TECHNIQUE: The patient was administered approximately 10 mCi of Tc 99m Sestamibi prior to resting SP ECT imaging of the heart. The patient was then administered approximately 30 mCi of Tc 99m Sestamibi following exercise or pharmacologic stress. Multiplanar SPECT images were reviewed. FINDINGS: The end diastolic volume is 160 ml, the end systolic volume is 115 ml, and the ejection fr action is 28 %. Technical difficulty limited examination. Exam is still considered diagnostic for stress ischemia ass essment. Large anterior wall and apex fixed defects are identifiable. No stress-induced ischemic changes are i dentifiable. Inferior wall scarring near the apex is evident as well. IMPRESSION: Exam is technically limited but shows no evidence for stress induced ischemia. Multiple sites of scarring are identified with end-diastolic volume of 160 milliliters and a poor eje ction fraction of 28%.
[2018-07-12] MEDS: NA CHLORIDE 0.9% 1,000 ML IV SCH (22:17)
[2018-07-13] MEDS: ACETAMINOPHEN 500 MG TAB PO PRN (00:09)
[2018-07-13] MEDS: METRONIDAZOLE 500mg IVPB 500 MG/100 ML BAG IV SCH ×3 (05:00→21:34)
[2018-07-13] MEDS: AMLODIPINE 5 MG TAB PO SCH (08:53)
[2018-07-13] MEDS: LOSARTAN POTASSIUM 50 MG TABLET PO SCH (08:54)
[2018-07-13] MEDS: CIPROFLOXACIN 400mg IV 400 MG/200 ML BAG IV SCH ×2 (08:54→23:05)
[2018-07-13] MEDS: PANTOPRAZOLE 40 MG INJ IVP SCH ×2 (08:54→21:34)
[2018-07-13] MEDS: NA CHLORIDE 0.9% 1,000 ML IV SCH ×2 (09:52→17:39)
[2018-07-13 09:55] LABS: Absolute Lymphocytes (CBC) 0.9 K/uL (0.7-4.9); Absolute Neutrophil 7.7 K/uL (1.8-8.0); Basophils % 0.4 % (0-1.3); Eosinophils % 2.5 % (0-4.4); Hematocrit 36.5 % (39.6-49.0); Lymphocytes % 9.2 % (15.3-44.8); MPV 9.7 fL (7.6-11.3); Monocytes % 10.5 % (3.3-12.3)
[2018-07-13 10:25] LABS: BUN Blood Urea Nitrogen 16 mg/dL (7-18); Bicarbonate 28 mmol/L (21-32); Glucose Level 165 mg/dL (74-106); Sodium Level 146 mmol/L (136-145)
[2018-07-13 10:30] LABS: Potassium 2.8 mmol/L (3.5-5.1)
[2018-07-13] MEDS: KCL 20 MEQ/100 mL IVPB 20 MEQ/100 ML BAG IV SCH ×3 (10:44→14:49)
[2018-07-13] MEDS: ENOXAPARIN 30 MG/0.3 ML SQ SCH (10:44)
--- NOTE | 2018-07-13 14:20 | PN ---
Date of Progress Note: 07/12/2018 The patient states he feels somewhat stronger today. He is asymptomatic. However, he did have some positive findings both on an echo and stress test. Awaiting cardiology decision as far as catheteriz ation is concerned. HR/MODL Voice ID: [id number] Report ID: [id number]
[2018-07-13 19:34] LABS: Albumin 2.6 g/dL (3.4-5.0); Bilirubin Direct 0.6 mg/dL (0-0.2); Bilirubin Total 1.4 mg/dL (0.2-1.0); Potassium 3.6 mmol/L (3.5-5.1); Protein, Total 5.9 g/dL (6.4-8.2)
[2018-07-13] MEDS ORDERED: METOPROLOL TAR 25 MG TAB PO ONE (20:00)
[2018-07-13] MEDS ORDERED: POTASSIUM CL SA 10 MEQ TAB PO ONE (21:24)
[2018-07-13] MEDS ORDERED: TAMSULOSIN 0.4 MG SR CAP PO SCH (22:13)
--- NOTE | 2018-07-14 00:53 | PN ---
Date of Progress Note: 07/13/2018 The patient is seen by Cardiology after the cardiac workup and felt he was not indicated for catheter ization at this time. Suggested the use of beta-arsenio. This was added to his regimen. However, s hortly before he was going to be discharged, potassium was recorded at 2.8. He was placed on the pro tocol and came back normal. However, his liver enzymes were still slightly elevated. It was, theref ore, decided to keep him overnight, remove the oxygen, keep him on a saline lock, monitor him on the beta-arsenio as far as the PACs were concerned, and further workup for his LFTs. If all these were n ormal, he could be discharged in the a.m. to follow up in the office in 2 weeks. HR/MODL Voice ID: [id number] Report ID: [id number]
[2018-07-14 04:49] LABS: Albumin 2.4 g/dL (3.4-5.0); Bilirubin Direct 0.7 mg/dL (0-0.2); Bilirubin Total 1.5 mg/dL (0.2-1.0); Potassium 3.6 mmol/L (3.5-5.1); Protein, Total 5.5 g/dL (6.4-8.2)
[2018-07-14] MEDS ORDERED: POTASSIUM CL SA 10 MEQ TAB PO ONE (06:00)
[2018-07-14] MEDS: METRONIDAZOLE 500mg IVPB 500 MG/100 ML BAG IV SCH ×3 (06:10→21:10)
[2018-07-14] MEDS: METOPROLOL TAR 25 MG TAB PO SCH (06:10)
[2018-07-14] MEDS: LOSARTAN POTASSIUM 50 MG TABLET PO SCH (08:54)
[2018-07-14] MEDS: ENOXAPARIN 30 MG/0.3 ML SQ SCH (08:55)
[2018-07-14] MEDS: AMLODIPINE 5 MG TAB PO SCH (08:55)
[2018-07-14] MEDS: CIPROFLOXACIN 400mg IV 400 MG/200 ML BAG IV SCH ×2 (08:56→21:10)
[2018-07-14] MEDS: PANTOPRAZOLE 40 MG INJ IVP SCH (08:56)
[2018-07-14] MEDS ORDERED: POTASSIUM CL SA 10 MEQ TAB PO SCH (09:00)
--- NOTE | 2018-07-14 09:25 | RAD REPORT ---
EXAM DESCRIPTION: US - Abdomen Exam Complete - 07/14/2018 7:40 am CLINICAL HISTORY: Abdominal pain/elevated liver function test enzymes COMPARISON: none FINDINGS: The liver has a heterogeneous echotexture. 1.3 centimeter hypoechoic mass is present withi n the left lobe. 2.3 centimeter hypoechoic mass is present the right lobe. A 3.3 centimeter hypoechoic mass lies near the garrett hepatis A gallstone is not seen. The gallbladder wall is not thickened. The biliary tree is normal caliber. The pancreas was not well visualized secondary overlying bowel gas. The right kidney measures 11 centimeters with a normal echotexture. The left kidney measures 11 centimeters with a normal echotexture. The spleen measures 7 centimeters. The abdominal aorta and inferior vena cava appear unremarkable IMPRESSION: Heterogeneous hepatic echotexture consistent with parenchymal disease. Couple of hepatic masses are present. 3.3 centimeter hypoechoic structure near the garrett hepatis of the liver may represent lymphadenopathy or other mass. CT scan with IV contrast recommended
[2018-07-14 10:02] LABS: Urine Appearance CLEAR; Urine Bilirubin NEGATIVE (NEG); Urine Blood NEGATIVE (NEG); Urine Color DK YELLOW; Urine Glucose NEGATIVE (NEG); Urine Protein TRACE (NEG); Urine Specific Gravity 1.015 (1.005-1.030); Urine Urobilinogen 0.2 mg/dL (0.2-1.0)
[2018-07-14 10:11] LABS: Urine Microscopic Reflex ORDER UMIC
[2018-07-14] MEDS: ONDANSETRON 4 MG/2 ML VIAL IV PRN (10:27)
[2018-07-14] MEDS: NA CHLORIDE 0.9% 1,000 ML IV SCH ×2 (10:27→23:50)
[2018-07-14 10:41] LABS: Urine Bacteria NONE SEEN /HPF (NONE SEEN); Urine Culture Reflex Order NOT NEEDED; Urine RBC <5 /HPF (NONE SEEN)
--- NOTE | 2018-07-14 11:57 | PN ---
Mr. Alvares does not seem to have CAD or left ventricular dysfunction. He does have paroxysmal atrial fib and beta-blockers have been started long-term. When he is ever well enough to go home, he shoul d consider being on chronic anticoagulation with Xarelto. Right now, Dr. Nevarez is doing an evaluat ion for liver disease of unknown origin, and I think we will hold off on giving him full anticoagulat ion until we know more about his liver. DILLON/HEATHER Voice ID: [id number] Report ID: [id number]
--- NOTE | 2018-07-14 13:45 | RAD REPORT ---
EXAM DESCRIPTION: CT - Abdomen Pelvis W/Wo Contrast - 07/14/2018 1:07 pm CLINICAL HISTORY: Abdominal pain COMPARISON: July 14, [address] TECHNIQUE: Computed axial tomography of the abdomen and pelvis was obtained. Unenhanced and enhanced images were taken. 100 cc Isovue 300 was administered intravenously. Images were obtained in arteria l, venous and delayed phases. Oral contrast given All CT scans are performed using dose optimization technique as appropriate and may include automated exposure control or mA/KV adjustment according to patient size. FINDINGS: Thrombus is present within right lower lobe pulmonary arteries Multiple hepatic lesions varying size from a few millimeters to 3 centimeters. 11 millimeter hypodense mass is suspected within the pancreatic neck. The pancreatic duct is dilated. The distal pancreas is atrophic. Multiple peripancreatic, garrett hepatis and periaortic/caval lymph nodes are present. Spleen, adrenals and kidneys appear unremarkable. There is no evidence of diverticulitis. The bladder wall is thickened and trabeculated. Prostate gland is moderately to markedly enlarged. Prostatic radiation beams are in place. 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 It is incompletel y evaluated on this exam A 17 millimeter mass is present within the right neural foramina at the L5-S1 level. 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 It is incompletel y evaluated on this exam Exam was discussed with Dr. Zamora 1:35 p.m. July 14, 2018
--- NOTE | 2018-07-14 18:09 | P.PN ---
Date of Service: 07/14/17 Subjective: Patient seen and examined at bedside with RN. Chart reviewed. Case discussed with cardiology, GI, nephrology. Case also discussed with primary care provider. Patient continues to have elevated LFTs. Abdominal ultrasound with liver cyst versus lesions. CT abdomen pelvis with and without contrast ordered at this time. Patient complains of having weakness poor appetite along with recent on intentional weight loss. Objective: Vital stable General: Alert and oriented x2. Not in any acute distress. Does appear ill and cachectic Cardiovascular: Regular rate and rhythm, S1 and S2 normal Lungs: Clear to auscultate bilaterally Abdomen: Soft nontender positive bowel sounds in all 4 quadrants Neuro: CN 2-12 intact. Extremity: Bruising noted. Negative edema. + pulse in all 4 extremities Labs: Reviewed Imaging: Abdominal CT pending at this time Assessment and plan 77-year-old male with 1. Status post fall: Currently working with physical therapy. Fall precautions given. 2. Elevated troponin: Cardiology consulted. Patient had from stress test and echocardiogram which were negative for any CAD however patient noted to have paroxysmal atrial fibrillation. Cardiology recommends beta-arsenio along with Xarelto. Patient started on beta-arsenio and anticoagulated at this time 3. Elevated LFTs: Abdominal ultrasound consistent with echogenicity is in the liver. Abdominal CT with and without contrast ordered. Will follow up with results here shortly 4. Diarrhea: Now resolved Disposition: Pending clinical improvement at this time. Will continue to monitor patient closely. Will follow up with abdominal CT at this time
[2018-07-14] MEDS ORDERED: RIVAROXABAN 15 MG TABLET PO SCH (18:30)
--- NOTE | 2018-07-14 21:04 | RAD REPORT ---
EXAM DESCRIPTION: US - Extrem Venous W Compress Beto - 07/14/2018 8:56 pm CLINICAL HISTORY: pt with RLL PE Bilateral leg edema and swelling. COMPARISON: Abdomen Pelvis W/Wo Contrast dated 07/14/2018; Abdomen Exam Complete dated 07/14/2018; C T ABD PELVIS W CONTRAST dated 07/12/2007; ABDOMINAL EXAM COMPLETE dated 07/20/2012 TECHNIQUE: Real-time sonographic interrogation of the left and right lower extremity deep venous sys tems was performed. FINDINGS: Thrombus is noted in the right posterior tibial vein in the calf. No additional DVT is see n in either lower extremity deep venous system. IMPRESSION: DVT is present in the right posterior tibial vein.
--- NOTE | 2018-07-14 21:08 | RAD REPORT ---
EXAM DESCRIPTION: US - Lower Extremity Arterial Bilat - 07/14/2018 8:56 pm CLINICAL HISTORY: pt with RLL PE Leg pain and swelling. COMPARISON: No comparisons TECHNIQUE: Bilateral lower extremity arterial Doppler examination was performed with waveform tracin g and great toe- brachial pressure measurements. FINDINGS: Symmetric brachial pressure measurements are noted. Triphasic waveforms are seen throughout both lower extremity arterial systems no high-grade stenosis or occlusion is seen. . Right great toe brachial index measures 0.6, normal. Left great toe brachial index measures 0.5, normal. IMPRESSION: No evidence of significant peripheral vascular disease.
[2018-07-14] MEDS: TAMSULOSIN 0.4 MG SR CAP PO SCH (21:09)
[2018-07-14] MEDS: PANTOPRAZOLE 40MG TABLET PO SCH (21:11)
[2018-07-15 05:11] VITALS: BMI 24.3
[2018-07-15] MEDS: METOPROLOL TAR 25 MG TAB PO SCH (06:00)
[2018-07-15 06:30] LABS: BUN Blood Urea Nitrogen 15 mg/dL (7-18); Bicarbonate 26 mmol/L (21-32); Glucose Level 146 mg/dL (74-106); Potassium 3.1 mmol/L (3.5-5.1); Sodium Level 145 mmol/L (136-145)
[2018-07-15] MEDS: METRONIDAZOLE 500mg IVPB 500 MG/100 ML BAG IV SCH ×3 (06:40→20:07)
[2018-07-15] MEDS: AMLODIPINE 5 MG TAB PO SCH (08:38)
[2018-07-15] MEDS: KCL 20 MEQ/100 mL IVPB 20 MEQ/100 ML BAG IV SCH ×2 (08:38→11:04)
[2018-07-15] MEDS: CIPROFLOXACIN 400mg IV 400 MG/200 ML BAG IV SCH ×2 (08:39→20:07)
[2018-07-15] MEDS: PANTOPRAZOLE 40MG TABLET PO SCH ×2 (08:39→16:56)
[2018-07-15] MEDS: LOSARTAN POTASSIUM 50 MG TABLET PO SCH (08:39)
[2018-07-15] MEDS: RIVAROXABAN 15 MG TABLET PO SCH ×2 (11:12→20:08)
--- NOTE | 2018-07-15 13:59 | PN ---
Mr. Alvares has been diagnosed with pancreatic cancer, liver metastases, deep vein thrombosis, pulmona ry embolus, now in atrial fib. He is going to be on Xarelto 15 b.i.d. for a couple of weeks and then Xarelto 20 once a day. He stayed in sinus rhythm almost all the time. I believe, he will be gettin g up to [facility] to see if there are any options for treating his stage IV pancreatic cancer. DILLON/HEATHER Voice ID: [id number] Report ID: [id number]
--- NOTE | 2018-07-15 14:45 | P.PN ---
Date of Service: 07/15/18 Subjective: Patient seen and examined at bedside with RN. Chart reviewed. Case discussed with cardiology, GI, nephrology. Case also discussed with primary care provider. Patient abdominal CT with pancreatic neck mass with metastasis to liver and lymph nodes surrounding area. Also concerning for right lower lobe PE. Ultrasound of bilateral lower extremity positive for right -sided DVT. Patient complains of having weakness poor appetite along with recent on intentional weight loss. [facility] were consulted for possible pancreatic cancer and transfer to a tertiary care center. Physician there recommended the patient be treated 1st for his physical debilitation along with PE and can follow up with them outpatient for further treatment of his pancreatic cancer and tissue biopsy. Objective: Vital stable General: Alert and oriented x2. Not in any acute distress. Does appear ill and cachectic Cardiovascular: Regular rate and rhythm, S1 and S2 normal Lungs: Clear to auscultate bilaterally Abdomen: Soft nontender positive bowel sounds in all 4 quadrants Neuro: CN 2-12 intact. Extremity: Bruising noted. Negative edema. + pulse in all 4 extremities Labs: Reviewed Imaging: Reviewed Assessment and plan 77-year-old male with 1. Status post fall: Currently working with physical therapy. Fall precautions given. 2. Paroxysmal AFib: Cardiology consulted. Patient had stress test and echocardiogram which were negative for any CAD however patient noted to have paroxysmal atrial fibrillation. Cardiology recommends beta-arsenio along with Xarelto. Patient started on beta-arsenio and anticoagulated at this time 3. Pancreatic neck mass with metastasis to liver and lymph nodes most likely stage III pancreatic cancer: GI currently consulted. [facility] recommended the patient get treated for pulmonary embolism and physical debilitation before further treatment for pancreatic cancer can be pursued. Will go ahead and order CEA, CA 19 9, physical therapy to work with patient here in the hospital. Family and patient educated extensively on the plan of care at this time. Once patient is able to gain his physical strength back along with treatment for his pulmonary embolism, DVT he can then follow up with oncology at [facility]. 4. PE and DVT: Patient with right-sided lower lobe PE noted. Started on sore also 50 mg b.i.d.. Disposition: Pending clinical improvement at this time. Will continue to monitor patient closely. Will follow up with PT recommendations regarding placement. Once patient has placement patient will need to make an appointment with oncology sometimes next week with Dr. Thompson at [facility]. Will continue in [place] for treatment of DVT and PE.
[2018-07-15] MEDS: NA CHLORIDE 0.9% 1,000 ML IV SCH ×2 (16:28→20:08)
[2018-07-15] MEDS: TAMSULOSIN 0.4 MG SR CAP PO SCH (20:08)
[2018-07-15] MEDS ORDERED: POTASSIUM CL SA 10 MEQ TAB PO ONE (20:50)
[2018-07-16] MEDS: ACETAMINOPHEN 500 MG TAB PO PRN ×4 (04:11→22:35)
[2018-07-16] MEDS: METRONIDAZOLE 500mg IVPB 500 MG/100 ML BAG IV SCH ×3 (04:11→20:29)
[2018-07-16 06:01] LABS: BUN Blood Urea Nitrogen 11 mg/dL (7-18); Bicarbonate 26 mmol/L (21-32); Glucose Level 157 mg/dL (74-106); Potassium 3.4 mmol/L (3.5-5.1); Sodium Level 143 mmol/L (136-145)
[2018-07-16] MEDS: METOPROLOL TAR 25 MG TAB PO SCH (06:08)
[2018-07-16] MEDS ORDERED: POTASSIUM CL SA 10 MEQ TAB PO ONE ×2 (09:00→21:00)
[2018-07-16] MEDS: CIPROFLOXACIN 400mg IV 400 MG/200 ML BAG IV SCH ×2 (09:30→20:29)
[2018-07-16] MEDS: RIVAROXABAN 15 MG TABLET PO SCH ×2 (09:31→20:29)
[2018-07-16] MEDS: LOSARTAN POTASSIUM 50 MG TABLET PO SCH (09:31)
[2018-07-16] MEDS: AMLODIPINE 5 MG TAB PO SCH (09:32)
[2018-07-16] MEDS: PANTOPRAZOLE 40MG TABLET PO SCH ×2 (09:33→17:04)
[2018-07-16] MEDS: NA CHLORIDE 0.9% 1,000 ML IV SCH ×2 (17:52→20:28)
--- NOTE | 2018-07-16 18:17 | P.PN ---
Subjective Date of Service: 07/16/18 family is declining discharge to SNF and wants the pt to be transferred to another hospital discussed in length with the pt their transfer options now family is considering transfer t inpatient rehab pt denied any CP,SOB or any other complains rehab consult placed Review of Systems 10-point ROS is otherwise unremarkable Physical Examination - Vital Signs Temperature: 97.3 F Blood Pressure: 114/71 Pulse: 82 Respirations: 22 Pulse Ox (%): 94 - Physical Exam General: Alert, Oriented x3 HEENT: Atraumatic, Normocephalic Neck: Supple, 2+ carotid pulse no bruit Respiratory: Clear to auscultation bilaterally, Normal air movement Cardiovascular: No edema, Normal pulses, Regular rate/rhythm, Normal S1 S2 Gastrointestinal: Normal bowel sounds, Soft and benign, Non-distended Musculoskeletal: No swelling, No erythema, No tenderness Assessment And Plan - Plan Assessment/plan: Status post fall Paroxysmal AFib DVT and PE pancreatic cancer stage 3 with mets to liver and lymph nodes plan: Patient had stress test and echocardiogram which were negative Cardiology recommends beta-arsenio along with Xarelto. Patient will f/up with [facility] as outpatient [facility] recommended the patient get treated for pulmonary embolism and physical debilitation before further treatment for pancreatic cancer can be pursued. PT/OT rehab consult dvt ppx with xarelto
[2018-07-16] MEDS: TAMSULOSIN 0.4 MG SR CAP PO SCH (20:29)
[2018-07-17] MEDS ORDERED: MORPHINE 2 MG/ML SYR IV PRN (00:23)
[2018-07-17] MEDS: HYDROCODONE/APAP 10/325 TAB PO PRN ×3 (02:09→20:55)
[2018-07-17] MEDS: METOPROLOL TAR 25 MG TAB PO SCH (05:16)
[2018-07-17] MEDS: METRONIDAZOLE 500mg IVPB 500 MG/100 ML BAG IV SCH ×3 (05:16→20:55)
[2018-07-17 07:11] LABS: Absolute Lymphocytes (CBC) 1.2 K/uL (0.7-4.9); Absolute Monocytes 1.2 K/uL (0.1-1.3); Absolute Neutrophil 8.5 K/uL (1.8-8.0); Basophils % 0.4 % (0-1.3); Eosinophils % 3.1 % (0-4.4); Hematocrit 34.6 % (39.6-49.0); Lymphocytes % 10.6 % (15.3-44.8); MPV 10.6 fL (7.6-11.3); Monocytes % 10.4 % (3.3-12.3); RBC Red Blood Cell Count 3.76 M/uL (4.33-5.43)
[2018-07-17 07:26] LABS: ALT/SGPT 84 U/L (12-78); AST/SGOT 117 U/L (15-37); Albumin 2.4 g/dL (3.4-5.0); Alkaline Phosphatase 237 U/L (45-117); BUN Blood Urea Nitrogen 10 mg/dL (7-18); Bicarbonate 22 mmol/L (21-32); Glucose Level 129 mg/dL (74-106); Potassium 3.9 mmol/L (3.5-5.1); Protein, Total 5.5 g/dL (6.4-8.2); Sodium Level 143 mmol/L (136-145)
[2018-07-17] MEDS: LOSARTAN POTASSIUM 50 MG TABLET PO SCH (08:24)
[2018-07-17] MEDS: AMLODIPINE 5 MG TAB PO SCH (08:24)
[2018-07-17] MEDS: CIPROFLOXACIN 400mg IV 400 MG/200 ML BAG IV SCH ×2 (08:24→20:56)
[2018-07-17] MEDS: RIVAROXABAN 15 MG TABLET PO SCH ×2 (08:26→20:54)
[2018-07-17] MEDS: PANTOPRAZOLE 40MG TABLET PO SCH ×2 (08:26→16:39)
[2018-07-17] MEDS ORDERED: POTASSIUM CL SA 10 MEQ TAB PO ONE (09:36)
--- NOTE | 2018-07-17 11:28 | PN ---
Date of Progress Note: 07/16/2018 Mr. Alvares has been followed by Dr. Little for weakness and atrial fibrillation, was found to have st age IV pancreatic cancer. He is on Xarelto for atrial fibrillation, DVT, and pulmonary embolus. He remained in atrial fibrillation, rate in the 90s this morning. No cardiac symptoms. I would recomme nd no change in medical therapy from a cardiovascular standpoint. There were talks about sending the patient to [facility] for further treatment of his pancreatic cancer. We will sign off his case. PATY/HEATHER Voice ID: [id number] Report ID: [id number]
--- NOTE | 2018-07-17 14:31 | P.PN ---
Subjective Date of Service: 07/17/18 Patient is a still considering transfer to another hospital, refusing to inpatient rehab, family found an accepting physician at [facility] Dr. Fifi Nune[facility], called [facility] transfer center and initiated transfer process acording to the pt at the bedside ,pt was having problems with breathing but when I asked the pt he denied CP or SOB at this time ABG was done and pt was saturating 95% on 2 L NC f/up repeat CXR Review of Systems 10-point ROS is otherwise unremarkable Physical Examination - Vital Signs Temperature: 98.5 F Blood Pressure: 153/80 Pulse: 92 Respirations: 18 Pulse Ox (%): 92 - Physical Exam General: Alert, Oriented x3 HEENT: Atraumatic, Normocephalic, PERRLA Neck: JVD not distended Respiratory: Clear to auscultation bilaterally, Normal air movement Cardiovascular: No edema, Normal pulses, Regular rate/rhythm, Normal S1 S2 Gastrointestinal: Normal bowel sounds, Soft and benign, Non-distended Musculoskeletal: No swelling, No erythema, No tenderness Assessment And Plan - Plan Assessment/plan: Status post fall Paroxysmal AFib DVT and PE pancreatic cancer stage 3 with mets to liver and lymph nodes plan: Patient had stress test and echocardiogram which were negative Cardiology recommends beta-arsenio along with Xarelto. Patient will f/up with [facility] as outpatient [facility] recommended the patient get treated for pulmonary embolism and physical debilitation before further treatment for pancreatic cancer can be pursued. PT/OT rehab consult dvt ppx with xarelto
[2018-07-17 14:34] LABS: Arterial Blood Carboxyhemoglob 1.7 % (0-1.5); Blood Gas Oxyhemoglobin 85.4 % (94-97); Blood O2 Saturation 87.5 % (92-98.5)
[2018-07-17] MEDS: NA CHLORIDE 0.9% 1,000 ML IV SCH ×2 (15:14→20:32)
--- NOTE | 2018-07-17 15:18 | RAD REPORT ---
EXAM DESCRIPTION: RAD - Chest Single View - 07/17/2018 3:11 pm CLINICAL HISTORY: sob Chest pain. COMPARISON: Chest Single View dated 07/08/2018 FINDINGS: Portable technique limits examination quality. The lungs are grossly clear. The heart is normal in size. Tortuous and atherosclerotic aorta. IMPRESSION: No acute intrathoracic process suspected.
[2018-07-17] MEDS: TAMSULOSIN 0.4 MG SR CAP PO SCH (20:54)
[2018-07-18] MEDS: NA CHLORIDE 0.9% 1,000 ML IV SCH ×2 (03:58→09:52)
[2018-07-18] MEDS: HYDROCODONE/APAP 10/325 TAB PO PRN (03:58)
[2018-07-18] MEDS: METRONIDAZOLE 500mg IVPB 500 MG/100 ML BAG IV SCH (04:04)
[2018-07-18] MEDS: METOPROLOL TAR 25 MG TAB PO SCH (05:05)
[2018-07-18 05:54] LABS: Absolute Lymphocytes (CBC) 0.4 K/uL (0.7-4.9); Absolute Monocytes 1.1 K/uL (0.1-1.3); Absolute Neutrophil 17.7 K/uL (1.8-8.0); Basophils % 0.2 % (0-1.3); Eosinophils % 0.4 % (0-4.4); Lymphocytes % 2.3 % (15.3-44.8); MPV 10.5 fL (7.6-11.3); Monocytes % 5.9 % (3.3-12.3); RBC Red Blood Cell Count 3.48 M/uL (4.33-5.43)
[2018-07-18 06:04] LABS: Albumin 2.3 g/dL (3.4-5.0); Bilirubin Total 3.9 mg/dL (0.2-1.0); Potassium 4.1 mmol/L (3.5-5.1); Protein, Total 5.1 g/dL (6.4-8.2)
[2018-07-18] MEDS: LOSARTAN POTASSIUM 50 MG TABLET PO SCH (09:00)
[2018-07-18] MEDS: AMLODIPINE 5 MG TAB PO SCH (09:00)
[2018-07-18] MEDS: CIPROFLOXACIN 400mg IV 400 MG/200 ML BAG IV SCH (09:07)
[2018-07-18 09:08] LABS: Blood Morphology Comment NOT SEEN (NOT SEEN); Platelet Estimate ADEQ
[2018-07-18] MEDS: RIVAROXABAN 15 MG TABLET PO SCH (09:09)
[2018-07-18] MEDS: PANTOPRAZOLE 40MG TABLET PO SCH (09:09)
[2018-07-18] MEDS ORDERED: VANCOMYCIN 1.25 GM in NA CHLORIDE 0.9% 250 ML IVPB SCH (11:00)
[2018-07-18] MEDS ORDERED: VANCOMYCIN 1.75 GM in NA CHLORIDE 0.9% 500 ML IVPB SCH (11:00)
--- NOTE | 2018-07-18 11:51 | RAD REPORT ---
EXAM DESCRIPTION: US - Abdomen Exam Limited - 07/18/2018 11:38 am CLINICAL HISTORY: Abdominal pain. FINDINGS: The gallbladder wall is borderline thickened. A gallstone is not seen. The biliary tree is normal caliber. IMPRESSION: Borderline gallbladder wall thickening. A gallstone is not seen
[2018-07-18 12:15] LABS: Albumin 2.2 g/dL (3.4-5.0); Bilirubin Direct 3.1 mg/dL (0-0.2); Bilirubin Total 3.9 mg/dL (0.2-1.0); Protein, Total 5.2 g/dL (6.4-8.2)
--- NOTE | 2018-07-18 12:46 | P.DS ---
Admission Date: 07/08/18 Discharge Date: 07/18/18 Disposition: TRANSFER TO [facility] Brief History of Present Illness: please see hospital course Hospital Course: pt is 78 y/o man with pmhx of HTn,prostate cancer presented to ER s/p fall and bloody diarrhea ,was treated with cipro and flagyl for 10 days,cardiology was conulted for chest pain and and pt had stress test done which was -ve but pt was found to have Afib .pt also had DVT and PE ,CT of abdomen was done which showed pancreatic mass and multiple leasions in the liver ,[facility] were consulted for possible pancreatic cancer and transfer to a tertiary care center. Physician there recommended the patient be treated 1st for his physical debilitation along with PE and can follow up with them outpatient for further treatment of his pancreatic cancer and tissue biopsy. pt bilirubin was rising and today pt had leukocytosis with lactic acid of 2.4 , pt was started on vancomycin and zosyn ,BCx ,Liver US were ordered stat ,called transfer center to change transfer status from family request to urgent transfer since we dont have GI service at this time in our facility accepting physician is DR Julio Poole ,talked to transfer center and informed them that pt needs urgent GI evaluation discussed with the family at the bedside the plan of transfer pt was managed for: Status post fall Paroxysmal AFib DVT and PE pancreatic cancer stage 3 with mets to liver and lymph nodes hyperbilirubinemia r/o cholangititis plan: keep NPO urgent transfer for GI evaluation in [facility] vancomycin and zosyn Patient had stress test and echocardiogram which were negative Cardiology recommends beta-arsenio along with Xarelto. Patient will f/up with [facility] as outpatient [facility] recommended the patient get treated for pulmonary embolism and physical debilitation before further treatment for pancreatic cancer can be pursued. PT/OT rehab consult dvt ppx with xarelto Vital Signs/Physical Exam: Temp Pulse Resp BP Pulse Ox 97.8 F 85 18 102/55 L 91 07/18/18 08:00 07/18/18 09:00 07/18/18 08:00 07/18/18 09:00 07/18/18 08:00 Laboratory Data at Discharge: WBC 19.4 K/uL (4.3-10.9) H D 07/18/18 05:24 Hgb 10.6 g/dL (13.6-17.9) L 07/18/18 05:24 Hct 32.0 % (39.6-49.0) L 07/18/18 05:24 Plt Count 179 K/uL (152-406) 07/18/18 05:24 PT 15.3 SECONDS (9.2-12.8) H 07/08/18 18:36 INR 1.28 07/08/18 18:36 Sodium 143 mmol/L (136-145) 07/18/18 05:24 Potassium 4.1 mmol/L (3.5-5.1) 07/18/18 05:24 BUN 11 mg/dL (7-18) 07/18/18 05:24 Creatinine 0.88 mg/dL (0.55-1.3) 07/18/18 05:24 Glucose 163 mg/dL (74-106) H 07/18/18 05:24 Magnesium 2.3 mg/dL (1.8-2.4) 07/08/18 18:36 Total Bilirubin 3.9 mg/dL (0.2-1.0) H 07/18/18 11:42 AST 112 U/L (15-37) H 07/18/18 11:42 ALT 81 U/L (12-78) H 07/18/18 11:42 Alkaline Phosphatase 253 U/L (45-117) H 07/18/18 11:42 Troponin I 0.09 ng/mL (0.0-0.045) H 07/10/18 02:03 Lipase 59 U/L (73-393) L 07/09/18 05:17 Home Medications: Amlodipine Besylate 1 tab PO DAILY 07/08/18 Losartan/Hydrochlorothiazide [Losartan-Hctz 100-12.5 mg Tab] 1 tab PO DAILY 12/17 Tamsulosin [Flomax*] 2 cap PO BEDTIME 07/08/18 Hydrocodone 10/APAP 325 [[place] 10/325*] 1 tab PO Q6H PRN tab 07/18/18 Losartan Potassium [Cozaar*] 100 mg PO DAILY tablet 07/18/18 Metoprolol Tartrate [Lopressor*] 25 mg PO [id number] tab 07/18/18 Ondansetron [Zofran*] 4 mg IV Q4H PRN vial 07/18/18 Pantoprazole [Protonix Tab*] 40 mg PO BIDAC tab 07/18/18 Rivaroxaban [Xarelto*] 15 mg PO BID tablet 07/18/18 Tamsulosin [Flomax*] 0.4 mg PO BEDTIME cap 07/18/18 Patient Discharge Instructions: pt will be transferred to [facility] Diet: npo Activity: Ad elizabeth
[2018-07-18 15:23] VITALS: O2SAT 97
[2018-07-18 16:12] VITALS: BP 120/68; TEMP 98.1
[2018-07-18] MEDS ORDERED: PIPER/TAZO/NS 2.25gm 2.25 GM/50 ML BAG IVPB SCH (17:00)
[2018-07-19 04:07] LABS: HBsAG Nonreactive (Nonreactive); Hepatitis A IgM Antibody Nonreactive
[2018-07-19] MEDS ORDERED: VANCOMYCIN 1.25 GM in NA CHLORIDE 0.9% 250 ML IVPB SCH (05:00)
== END 2018-07-18 17:10 | disposition short-term general hospital (02) | DRG 377 ==
LOC: ER 17:32 → ERHOLD 20:45 → 4TH 22:42
PROVIDERS: ADMIT Family Medicine
DX: K92.2 Gastrointestinal hemorrhage, unspecified (principal); I26.99 Other pulmonary embolism without acute cor pulmonale; C25.7 Malignant neoplasm of other parts of pancreas; C78.7 Secondary malignant neoplasm of liver and intrahepatic bile duct; C77.9 Secondary and unspecified malignant neoplasm of lymph node, unspecified; I82.4Z9 Acute embolism and thrombosis of unspecified deep veins of unspecified distal lower extremity; I10 Essential (primary) hypertension; E86.0 Dehydration; S00.83XA Contusion of other part of head, initial encounter; W01.0XXA Fall on same level from slipping, tripping and stumbling without subsequent striking against object, initial encounter; Y93.01 Activity, walking, marching and hiking; Y92.019 Unspecified place in single-family (private) house as the place of occurrence of the external cause; R19.7 Diarrhea, unspecified; I48.0 Paroxysmal atrial fibrillation
CPT/HCPCS: 36415; 71045; 74178; 76700; 76705; 78452; 80048; 80053; 80074; 80076; 81001; 81003; 81015; 82378; 82550; 82805; 83605; 83690; 83735; 83880; 84132; 84145; 84484; 85025; 85610; 86301; 86850; 86900; 86901; 87040; 87086; 87088; 93005; 93017; 93306; 93925; 93970; 96365; 96375; 97110; 97112; 97116; 97163; 97167; 97530; 99285; A9500; C9113; J0744; J1650; J2405; J2785; J7030; Q9967